=== PATIENT | male | born 1950 | race Caucasian/White ===

== ENCOUNTER 2024-07-10 14:06 | Emergency (ER) | payer BC, MEDICARE ==
[2024-07-10] MEDS: Lidocaine/Epineph/Tetracaine 3 ML Syringe TOP ONE (14:51)
[2024-07-10] MEDS: Amoxicillin/Clavulanate K 875-125 MG Tab PO ONE (17:13)
== END 2024-07-10 17:23 | disposition home or self-care (01) ==
LOC: JP.ED 14:06
DX: S31.31XA Laceration without foreign body of scrotum and testes, initial encounter (principal); I10 Essential (primary) hypertension; E78.00 Pure hypercholesterolemia, unspecified; Z86.16 Personal history of COVID-19; Z79.899 Other long term (current) drug therapy; W54.0XXA Bitten by dog, initial encounter
CPT/HCPCS: 12001; 99284; A9270; 99283

== ENCOUNTER 2025-04-01 08:13 | Emergency (ER) | payer MEDICARE ==
[2025-04-01] MEDS: Doxycycline 100 MG Cap PO ONE (08:44)
== END 2025-04-01 08:48 | disposition home or self-care (01) ==
LOC: JP.ED 08:13
DX: S70.262A Insect bite (nonvenomous), left hip, initial encounter (principal); I10 Essential (primary) hypertension; E78.00 Pure hypercholesterolemia, unspecified; Z79.899 Other long term (current) drug therapy; W57.XXXA Bitten or stung by nonvenomous insect and other nonvenomous arthropods, initial encounter
CPT/HCPCS: 99281; A9270; 99283